=== PATIENT | female | born 1925 | race Caucasian/White ===

== ENCOUNTER 2016-10-14 08:39 | Inpatient (IN) | payer MEDICARE, BC ==
[~2016-10-14] VITALS: Ht 170.2 cm; Wt 85.1 kg
[~2016-10-14 08:39] MED LIST: ALLEGRA DPS180 MG PO; ARMOUR THYROID120 MG PO; ARMOUR THYROID30 M1 PO; ASPIRIN EC81 MG PO; DIFLUCAN DPS150 MG PO; FLEXERIL DPS5 MG PO; FOLIC ACID0.4 MG PO; GLUCOPHAGE XR500 MG PO; GLUTOSE 1537.5 GM PO; LOVENOX DP30 MG/0.3 SQ; LYRICA75 MG PO; MAALOX DPS30 ML PO; MILK OF MAGNESI10 ML PO; MIRALAX PACKET17 GM PO; MUCINEX600 MG PO; MYCOSTATIN PWD15 GM TP; OXY IR DPS5 MG PO; SENOKOT DPS8.6 MG PO; SLOW-MAG64 MG PO; SURFAK DPS240 MG PO; TYLENOL DPS325 MG PO; VITAMIN B-12500 MCG PO; VITAMIN D5000 UNI1 PO; ZANTAC DPS150 MG PO; ZOCOR DPS10 MG PO; ZOLOFT DPS50 MG PO; ZYLOPRIM-DPS100 MG PO; [UNRECOGNIZED DRUG - OTHER] TP
--- NOTE | 2016-10-15 15:49 | HP ---
ADMIT: 10/14/2016 RM/LOC: 510 [facility] MR#: [id number] [address] [place] [address] History and Physical SEX: F AGE: 89 : 1925 DATE OF SERVICE: CHIEF COMPLAINT: Fall, found down. HISTORY OF PRESENT ILLNESS: The patient is a fantastic 89-year-old female, who normally sees Dr. Arora in clinic who unfortunately around 6 o'clock yesterday evening fell down when trying to sit back in her [employer] recliner. She did not call anybody, just struggled all night trying to get up. About 8 a.m. was found eventually. Prior to yesterday for the last 24-48 hours, she has kind had colds. She states her right eye has been itchy. She has been coughing up some sputum. No major fever. No major shortness of breath. No known sick contacts that she is aware of. No chest pain. No new swelling in lower extremities. No abdominal pain. She has been struggling with some chronic right ankle pain due to her fracture earlier this last winter but overall has made a reasonable recovery returning back to assisted living. PAST MEDICAL HISTORY: 1. PMR in remission. 2. Hyperlipidemia. 3. Hypertension. 4. Overactive bladder. 5. Hypothyroidism. 6. Diet-controlled diabetes. 7. History of ankle fracture. 8. Gout. FAMILY HISTORY: Significant for heart disease in her mother and her brother. SOCIAL HISTORY: Lives at the [facility] with her who has dementia. Nonsmoker. ALLERGIES: LISINOPRIL. MEDICATIONS: She is on: 1. VESIcare. 2. Triamcinolone topical. 3. Slow-Mag. 4. Simvastatin. 5. Sertraline. 6. Senna-Lax. 7. Zantac. 8. Ranitidine. 9. Lyrica. 10.Prednisone 5 mg daily. 11.Oxycodone. 12.Nystatin. 13.Winlock Thyroid. 14.Metformin. 15.Guaifenesin. ADMIT: 10/14/2016 RM/LOC: 510 [facility] MR#: [id number] [address] [place] [address] History and Physical SEX: F AGE: 89 : 1925 16.Folic acid. 17.Docusate. 18.Flexeril. 19.Aspirin. 20.Allopurinol. 21.Tylenol. REVIEW OF SYSTEMS: As per HPI. Otherwise, completely reviewed and negative. PHYSICAL EXAMINATION: VITAL SIGNS: Blood pressure 162/81, pulse 79, respiratory rate 21, O2 saturation 95% on room air, and afebrile. GENERAL: She is alert and oriented x3. No acute distress. Extremely pleasant. Little hard of hearing. HEENT: Normocephalic, atraumatic. Pupils are equal bilaterally. No icterus. Mucous membranes very dry. No intraoral lesions. NECK: No lymphadenopathy. Soft, supple. Trachea midline. LUNGS: Few fine rales present bilaterally at posterior bases. Symmetric thoracic excursion. No rhonchi noted. HEART: Regular rate and rhythm. No murmurs, rubs, or gallops. ABDOMEN: Soft, nontender, nondistended. Bowel sounds present. EXTREMITIES: No cyanosis, clubbing, or edema. MUSCULOSKELETAL: 5/5 strength in all 4 extremities. SKIN: No rashes noted. No major bruises noted. PSYCHIATRIC: Very pleasant. Normal mood and affect. LABORATORY AND X-RAY DATA: Creatinine 1.0. Mag 1.9. CK 538. White count 7.5, hemoglobin 12.4. Lactic acid 1.2. Sodium 142, potassium 4.0. UA shows high nitrites. Procalcitonin is negative. X-ray of her chest shows some interstitial markings, slightly more prominent than on previous exam. Possible interstitial edema versus inflammatory change. ASSESSMENT: 1. Urinary tract infection. ADMIT: 10/14/2016 RM/LOC: 510 [facility] MR#: [id number] [address] [place] [address] History and Physical SEX: F AGE: 89 : 1925 2. Fall. 3. Bronchitis. 4. Mild rhabdomyolysis. 5. Hypertension. 6. Diabetes type 2. 7. Hypothyroidism. PLAN: At this point in time, we will hydrate her up. Start antibiotics for UTI. Seems to have mostly just bronchitis. Give her some DuoNebs. See how she does over the next couple of days here. We will have therapy work with her. Trend her CK to make sure it does not worsen and anticipate she will do well in that regard. The patient agreeable to plan. Sen Webber MD/ darrian JOB #: [id number] CC: Rut Arora, Attending Physician Rut Arora, Family Physician
--- NOTE | 2016-10-19 23:42 | ER ---
ADMIT: 10/14/2016 RM/LOC: 510 [facility] MR#: [id number] [id number] [address] [place] [address] Emergency Room Report SEX: F AGE: 89 : 1925 DATE: 10/14/2016 TIME: 0839 Please refer to my T-sheet for complete H and P. Briefly, the patient is an 89-year-old, who lives independently but she is checked in on once a day. She was found on the floor, she had been lying there at least 12 hours. She said she got down on the floor, could not get up. She is having a little bit of left ankle pain. No other problems except she was weak and could not get off the floor. She is brought in for evaluation. She said she maybe had a cold yesterday. PHYSICAL EXAMINATION: VITAL SIGNS: Her blood pressure 169/74, pulse 79, respirations 14, temp 97.7, and sat 98%. GENERAL: She is in no acute distress. HEENT: Grossly normal. LUNGS: Clear. HEART: Regular. ABDOMEN: Soft. EXTREMITIES: Her left ankle has a pressure sore on it. Otherwise no acute deformities. EMERGENCY DEPARTMENT COURSE: We did sepsis protocol. CBC normal. Chemistries normal except glucose 179. Coags normal. Lactate 1.2. UA showed positive nitrites, 2+ leukocyte esterase, 8 white cells. CK was 538, CK-MB 5.6, troponin negative. EKG is sinus rhythm, no acute changes. Chest x-ray revealed atelectasis, bibasilar. Left ankle was negative. I did give her a liter normal saline bolus. I then started her on Zosyn for her urinary infection. I talked to Dr. Webber, will admit to the hospital. ASSESSMENT: 1. Urinary tract infection. 2. Weakness. 3. Bronchitis. 4. Increased CK (creatine kinase). 5. Fall. PLAN: Admit to the hospital. Stephen Moreno MD/ darrian JOB #: [id number] CC: Rut Arora MD, Attending Physician Rut Arora MD, Family Physician
--- NOTE | 2016-10-21 12:10 | DS ---
ADMIT: 10/14/2016 RM/LOC: 510 [facility] MR#: [id number] [address] [place] [address] Discharge Summary SEX: F AGE: 89 : 1925 ADMISSION DATE: 10/14/2016 DISCHARGE DATE: 10/20/2016 DISCHARGE DIAGNOSES: 1. Fall. 2. Weakness. 3. Mild rhabdomyolysis. 4. Citrobacter UTI (urinary tract infection). 5. Bilateral pneumonia. 6. Diabetes mellitus. 7. Confusion. 8. Bronchitis. 9. Hypertension. 10.Hypothyroidism. 11.Hyperlipidemia. 12.History of peripheral neuropathy. 13.Hypokalemia. HOSPITAL COURSE: The patient was admitted. She was evaluated. Was just noted to have a UTI with Citrobacter. Was also noted to have a bilateral pneumonia. She was not requiring any oxygen. She was tolerating IV antibiotics, otherwise she was actually doing quite well. She was seen by PT. She felt like she wanted to go home with Home Health Care, which I felt was appropriate with her weakness and multiple comorbidities. Plan was for patient to be discharged home. DISCHARGE MEDICATIONS: 1. Eden thyroid home dose. 2. Aspirin 81 mg p.o. daily. 3. Levaquin 750 p.o. daily x3. 4. Lyrica 75 mg p.o. b.i.d. 5. Ranitidine 150 p.o. daily. ADMIT: 10/14/2016 RM/LOC: 510 [facility] MR#: [id number] [facility] [address] [place] [id number] [place] [address] Discharge Summary SEX: F AGE: 89 : 1925 6. Senokot 8.6 p.o. b.i.d. 7. Zestril 10 mg p.o. daily. 8. Zocor 10 mg p.o. at bedtime. 9. Zoloft 100 mg p.o. at bedtime. 10.Allopurinol 100 mg p.o. at bedtime. 11.DuoNeb q.i.d. 12.Natural Tears q.i.d. 13.Mycostatin to rash b.i.d. She had a few p.r.n. medications. She was to follow up with Dr. Rut Arora in 7-10 days with a chest x-ray at that time. Rut Arora MD/ nataliia JOB #: [id number] CC: Rut Arora MD, Attending Physician Rut Arora MD, Family Physician
[2016-10-21] MEDS ORDERED: ZOLOFT DPS100 MG PO (18:58)
[2016-10-21] MEDS ORDERED: ZOCOR DPS10 MG PO (18:59)
[2016-10-21] MEDS ORDERED: METFORMIN HCL500 M1 PO (18:59)
[2016-10-21] MEDS ORDERED: VESICARE5 MG PO (18:59)
[2016-10-21] MEDS ORDERED: ZANTAC DPS150 MG PO (18:59)
[2016-10-21] MEDS ORDERED: LYRICA75 MG PO (19:00)
[2016-10-21] MEDS ORDERED: ALLOPURINOL100 MG PO (19:00)
[2016-10-21] MEDS ORDERED: VITAMIN B-12500 MCG PO (19:00)
[2016-10-21] MEDS ORDERED: ASPIRIN EC81 MG PO (19:00)
[2016-10-21] MEDS ORDERED: COLACE-DPS100 MG PO (19:01)
[2016-10-21] MEDS ORDERED: TYLENOL DPS325 MG PO (19:01)
[2016-10-21] MEDS ORDERED: VITAMIN D35000 UNI1 PO (19:01)
[2016-10-21] MEDS ORDERED: ALLEGRA DPS180 MG PO (19:01)
[2016-10-21] MEDS ORDERED: ARMOUR THYROID30 M1 PO (19:02)
[2016-10-21] MEDS ORDERED: ARMOUR THYROID60 M1 PO (19:02)
[2016-10-21] MEDS ORDERED: SENOKOT DPS8.6 MG PO (19:03)
[2016-10-21] MEDS ORDERED: FOLIC ACID0.4 MG PO (19:03)
[2016-10-21] MEDS ORDERED: KEPPRA750 MG PO (19:04)
[2016-10-21] MEDS ORDERED: SLOW-MAG71.5 MG PO (19:04)
[2016-10-21] MEDS ORDERED: ZESTRIL DPS10 MG PO (19:04)
[2016-10-21] MEDS ORDERED: MYCOSTATIN PWD15 GM TP (19:05)
[2016-10-21] MEDS ORDERED: TEARS NATURAL D15 ML OD (19:05)
[2016-10-21] MEDS ORDERED: NYSTATIN CREAM15 GM TP (19:06)
[2016-10-21] MEDS ORDERED: COMBIVENT RESPIM4 GM IH (19:06)
== END 2016-10-20 16:20 | disposition home health service (06) | DRG 689 ==
LOC: ER 08:39 → 5MS 10:40
PROVIDERS: ADMIT Internal Medicine
DX: N39.0 Urinary tract infection, site not specified (principal); J18.9 Pneumonia, unspecified organism; M62.82 Rhabdomyolysis; E11.42 Type 2 diabetes mellitus with diabetic polyneuropathy; B96.89 Other specified bacterial agents as the cause of diseases classified elsewhere; M35.3 Polymyalgia rheumatica; E87.6 Hypokalemia; E78.5 Hyperlipidemia, unspecified; I10 Essential (primary) hypertension; N32.81 Overactive bladder; E03.9 Hypothyroidism, unspecified; M10.9 Gout, unspecified; Z79.52 Long term (current) use of systemic steroids; Z79.84 Long term (current) use of oral hypoglycemic drugs; Z79.82 Long term (current) use of aspirin